=== PATIENT | male | born 1980 | race Caucasian/White ===

== ENCOUNTER 2023-02-19 11:05 | Outpatient (CLI) | payer BC, SELFPAY | END 2023-02-19 11:06 | disposition home or self-care (01) | LOC: NFLDREF 02-20 06:47 | PROVIDERS: PCP Family Medicine; Referring Provider Family Medicine; Visit Provider Family Medicine | DX: Z00.00 Encounter for general adult medical examination without abnormal findings (principal); E66.01 Morbid (severe) obesity due to excess calories; R53.83 Other fatigue; G47.30 Sleep apnea, unspecified; J45.909 Unspecified asthma, uncomplicated; R20.0 Anesthesia of skin; Z13.6 Encounter for screening for cardiovascular disorders | CPT/HCPCS: 80053; 80061; 84443 ==

== ENCOUNTER 2024-04-27 10:57 | Outpatient (CLI) | payer BC, SELFPAY ==
--- NOTE | 2024-04-27 11:00 | CRLHL7_ITS ---
For Patients: As a result of the Century Cures Act, medical imaging exams and procedure reports are released immediately into your electronic medical record. You may view this report before your referring provider. If you have questions, please contact your health care provider. INDICATION: right knee pain and swelling in calf COMPARISON: None. TECHNIQUE: A compression venous ultrasound exam was performed of the right lower extremity using obrien-scale imaging, color Doppler and spectral Doppler analysis. FINDINGS: Sonographic imaging of the right lower extremity demonstrates normal compressibility and color Doppler venous blood flow within the common femoral vein, deep femoral vein, and the proximal greater saphenous vein. Within the thigh, the femoral vein is patent and compressible. At a lower level, the popliteal and posterior tibial veins also show normal compressibility and color Doppler venous blood flow. Limited imaging of the contralateral groin demonstrates a normal spectral waveform and color Doppler venous blood flow within the left common femoral vein. IMPRESSION: Normal venous ultrasound exam. No evidence of deep vein thrombosis within the right lower extremity. Dictated by Marty Elias MD @ 04/27/2024 11:52:07 AM (Electronically Signed)
--- OUTSIDE RECORDS SUMMARY | 2024-04-27 11:00 | XMS_ITS | Referral Summary ---
Author Organization [place] Address [facility] [place] [address] Care Team Providers Care Medical Insurance Coding Specialist Name Role Phone [facility] Primary Care Provider Allergies No known active allergies Medications Medication Sig Dispensed Refills Start Date End Date Status cetirizine (ZYRTEC) 10 MG tablet Take 10 mg by mouth daily as needed for allergies Active acetaminophen (TYLENOL) 325 MG tabletIndications:C ellulitis of right lower extremity,Injury of right lower extremity, initial encounter Take 2 tablets (650 mg) by mouth every 4 hours as needed for mild pain 100 tablet 05/16/2018 Active furosemide (LASIX) 40 MG tabletIndications:H ypervolemia, unspecified hypervolemia type Take 1 tablet (40 mg) by mouth daily 90 tablet 3 06/11/2018 Active Additional Information Patient not taking.Reported on 10/12/2019 Active Problems Problem Noted Date Diagnosed Date Traumatic hematoma of lower leg with infection 0 05/15/2018 Abscess of right leg 05/15/2018 Morbid obesity 09/11/2014 SONAM (obstructive sleep apnea) Overview: on BiPAP Immunizations Name Administration Dates Next Due Influenza (IIV3) PF 06/18/2016 TDAP Vaccine (Adacel) 09/11/2014 Social History Tobacco Use Types Packs/Day Years Used Date Smoking Tobacco: Never Smokeless Tobacco: Never Alcohol Use Standard Drinks/Week Comments Yes 0 (1 standard drink = 0.6 oz pur e alcohol) weekly, but not every day PHQ-2 Answer Date Recorded PHQ-2 Score 0 09/05/2019 Adolescent Education Answer Date Record ed Getting School Help Needed Not on file 05/23 Sex and Gender Information Value Date Recorded Sex Assigned at Male 05/09/2021 8:23 PM CDT Gender Identity Male 05/09/2021 8:23 PM CDT Sexual Orientation Straight 05/09/2021 8: 23 PM CDT Last Filed Vital Signs Vital Sign Reading Time Taken Comments Blood Pressure 126/74 10/12/2019 5:49 PM HEAD OF PHYSICS Pulse 80 10/12/2019 5:49 PM [facility]YSICS Temperature 36.7 ??C (98.1 ??F) 10/12/2019 5:49 PM CS T Respiratory Rate 20 09/03/2019 10:39 PM [facility] Oxygen Saturation 97% 10/12/2019 5:49 PM [facility]ICS Inhaled Oxygen Concentration - - Weight 173.7 kg (383 lb) 10/12/2019 5:49 PM [facility]YSICS Height 193 cm (6' 4) 05/15/2018 6:07 AM CDT Body Mass Index 46.62 05/15/2018 6:07 AM CDT Plan of Treatment Not on file Procedures Procedure Name Priority Date/Time Associated Diagnosis Comments RENAL PANEL Routine 06/10/2018 11:02 AM CDT Acute kidney injury (H) LIPID REFLEX TO DIRECT LDL PANEL Routine 09/11/2014 8:51 AM HEAD OF PHYSICS Routine General Medical Examination At A Health Care Facility from Last 3 Months or Most Recently Relevant to Health Maintenance Results * (ABNORMAL) Renal panel (06/10/2018 11:02 AM CDT) Sodium 135 133 - 144 mmol/L 06/10/2018 11:39 AM CDT [facility] Potassium 4.0 3.4 - 5.3 mmol/L 06/10/2018 11:39 AM CDT [facility] Chloride 103 94 - 109 mmol/L 06/10/2018 11:39 AM CDT [facility] Carbon Dioxide 24 20 - 32 mmol/L 06/10/2018 11:39 AM CDT [facility] Anion Gap 9 3 - 14 mmol/L 06/10/2018 11:39 AM CDT [facility] Glucose 95 70 - 99 mg/dL 06/10/2018 11:39 AM CDT [facility] Urea Nitrogen 16 7 - 30 mg/dL 06/10/2018 11:39 AM CDT [facility] Creatinine 1.30(H) 0.66 - 1.25 mg/dL 06/10/2018 11:39 AM CDT [facility] GFR Estimate 62 >60 mL/min/1.7 m2 06/10/2018 11:39 AM CDT [facility] Comment:Non GFR Calc GFR Estimate If Black 75 >60 mL/min/1.7 m2 06/10/2018 11:39 AM CDT [facility] Comment: GFR Calc Calcium 8.9 8.5 - 10.1 mg/dL 06/10/2018 11:39 AM CDT [facility] Phosphorus 3.4 2.5 - 4.5 mg/dL 06/10/2018 11:39 AM CDT [facility] Albumin 3.6 3.4 - 5.0 g/dL 06/10/2018 11:39 AM CDT [facility] Blood specimen (specimen) 06/10/2018 11:02 AM CDT 06/10/2018 11:04 AM CDT [facility] - BLOOD ORDER KAYE [address] [phone] * (ABNORMAL) Lipid Profile with reflex to direct LDL (09/11/2014 8:51 AM HEAD OF PHYSICS) Cholesterol 213(H) <200 mg/dL [facility] Comment: LDL Cholesterol is the primary guide to therapy. The NCEP recommends further evaluation of: patients with cholesterol greater than 200 mg/dL if additional risk factors are present, cholesterol greater than 240 mg/dL, triglycerides greater than 150 mg/dL, or HDL less than 40 mg/dL. Triglycerides 130 0 - 150 mg/dL [facility] Comment:Fasting specimen HDL Cholesterol 40(L) >40 mg/dL [facility] LDL Cholesterol Calculated 147(H) 0 - 129 mg/dL [facility] Comment: LDL Cholesterol is the primary guide to therapy: LDL-cholesterol goal in high risk patients is <100 mg/dL and in very high risk patients is <70 mg/dL. VLDL-Cholesterol 26 0 - 30 mg/dL [facility] Cholesterol/HDL Ratio 5.3(H) 0.0 - 5.0 [facility] Blood specimen (specimen) 09/11/2014 8:51 AM [facility]ICS 09/11/2014 8:56 AM [facility] PHYSICS Truong Alfaro MD LAB - BLOOD ORDERA BLES Performing Organization Address City/State/[facility] Co de Phone Number [facility] [address] [place] [address] from Last 3 Months or Most Recently Relevant to Health Maintenance Advance Directives For more information, please contact: [phone] * Full Code (Latest Code Status on File) Date Activated Date Inactivated Comments 05/16/2018 2:28 PM 09/03/2019 10:33 PM Question Answer Comments Code status determined by: Discussion with patie nt/legal decision maker * Full Code Date Activated Date Inactivated Comments 05/15/2018 12:54 AM 05/16/2018 2:28 PM Question Answer Comments Code status determined by: Discussion with jarad nt/legal decision maker Care Teams Medical Insurance Coding Specialist Relationship Specialty Start Date End Date [facility] - [address] [address] PCP - General Internal Medicine 04/10/18
--- OUTSIDE RECORDS SUMMARY | 2024-04-27 11:00 | XMS_ITS | Clinical Summary ---
Author Organization [place] Address [facility] [place] [address] Care Team Providers Care Corporate Treasury Analyst Name Role Phone [facility] Primary Care Provider Allergies No known active [...] (IIV3) PF 06/18/2016 TDAP Vaccine (Adacel) 09/11/2014 Family History Medical History Relation Comments Diabetes Father Hypertension Father Multiple Sclerosis Mother Seizure Disorder Mother Cancer - colorectal No family hx of Colon Cancer No family hx of Prostate Cancer No family hx of Relation Status Comments Father Alive Mother Alive Sister 1 Alive Sister 2 Alive Social History Tobacco Use Types Packs/Day Years [...] Comments Blood Pressure 126/74 10/12/2019 5:49 PM ACCOUNT DEVELOPMENT REPRESENTATIVE Pulse 80 10/12/2019 5:49 PM ACCOUNT DEVELOPMENT REPRESENTATIVE Temperature 36.7 ??C (98.1 ??F) 10/12/2019 5:49 PM CS T Respiratory Rate 20 09/03/2019 10:39 PM ACCOUNT DEVELOPMENT REPRESENTATIVE Oxygen Saturation 97% 10/12/2019 5:49 PM ACCOUNT DEVELOPMENT REPRESENTATIVE Inhaled Oxygen Concentration - - Weight 173.7 kg (383 lb) 10/12/2019 5:49 PM ACCOUNT DEVELOPMENT REPRESENTATIVE Height 193 cm (6' 4) 05/15/2018 6:07 AM CDT Body Mass Index 46.62 05/15/2018 6:07 AM CDT Plan of Treatment Health Maintenance Due Date Last Done Comments ADVANCE CARE PLANNING 1982 ANNUAL REVIEW OF HM ORDERS 1982 HIV SCREENING 1997 HEPATITIS C SCREENING 2000 YEARLY PREVENTIVE VISIT 09/11/2015 09/11/2014 GLUCOSE 06/10/2021 06/10/2018, 05/17, 05/24/2018, Additional history exists LIPID 2022 09/11/2014 COVID-19 Vaccine ( season) 2023 01/24/2021 PHQ-2 (once per calendar year) 2023 09/05/2019, 05/24/2018 INFLUENZA VACCINE (#1) 2024 06/18/2016 DTAP/TDAP/TD IMMUNIZATION (3 - Td or Tdap) 09/11/2024 09/11/2014, 03/13/1999 HEPATITIS B IMMUNIZATION Completed 996, 04/24/1995, 03/27/1995 HPV IMMUNIZATION Aged Out No longer e ligible based on patient's age to complete this topic IPV IMMUNIZATION Aged Out No longer e ligible based on patient's age to complete this topic MENINGITIS IMMUNIZATION Aged Out No l onger eligible based on patient's age to complete this topic Pneumococcal Vaccine: Pediatrics (0 to 5 Years) and At-Risk Patients (6 to 64 Years) Aged Out No longer eligible based on patient's age to complete this topic RSV MONOCLONAL ANTIBODY Aged Out No l onger eligible based on patient's age to complete this topic Procedures Procedure Name Priority Date/Time Associated Diagnosis Comments RENAL PANEL Routine 06/10/2018 11:02 AM CDT Acute kidney injury (H) LIPID REFLEX TO DIRECT LDL PANEL Routine 09/11/2014 8:51 AM ACCOUNT DEVELOPMENT REPRESENTATIVE Routine General Medical Examination At A [facility] Facility from Last 3 Months or Most Recently Relevant to Health Maintenance Results * (ABNORMAL) Renal panel (06/10/2018 11:02 AM CDT) Sodium 135 133 - 144 mmol/L 06/10/2018 11:39 AM CDT [facility] Potassium 4.0 3.4 - 5.3 mmol/L 06/10/2018 11:39 AM CDT [facility] Chloride 103 94 - 109 mmol/L 06/10/2018 11:39 AM CDT [facility] Carbon Dioxide 24 20 - 32 mmol/L 06/10/2018 11:39 AM CDT [facility] Anion Gap 9 3 - 14 mmol/L 06/10/2018 11:39 AM CDT [facility] Glucose 95 70 - 99 mg/dL 06/10/2018 11:39 AM CDT [facility] Urea Nitrogen 16 7 - 30 mg/dL 06/10/2018 11:39 AM CDT [facility] Creatinine 1.30(H) 0.66 - 1.25 mg/dL 06/10/2018 11:39 AM CDT [facility] GFR Estimate 62 >60 mL/min/1.7 m2 06/10/2018 11:39 AM CDT [facility] Comment:Non GFR Calc GFR Estimate If Black 75 >60 mL/min/1.7 m2 06/10/2018 11:39 AM CDT [facility] Comment: GFR Calc Calcium 8.9 8.5 - 10.1 mg/dL 06/10/2018 11:39 AM CDT [facility] Phosphorus 3.4 2.5 - 4.5 mg/dL 06/10/2018 11:39 AM CDT [facility] Albumin 3.6 3.4 - 5.0 g/dL 06/10/2018 11:39 AM CDT [facility] Blood specimen (specimen) 06/10/2018 11:02 AM CDT 06/10/2018 11:04 AM CDT Nette Sheehan NP LAB - BLOOD ORDER KAYE [address] [phone] * (ABNORMAL) Lipid Profile with reflex to direct LDL (09/11/2014 8:51 AM ACCOUNT DEVELOPMENT REPRESENTATIVE) Cholesterol 213(H) <200 mg/dL [facility] Comment: LDL Cholesterol is the primary guide to therapy. The NCEP recommends further evaluation of: patients with cholesterol greater than 200 mg/dL if additional risk factors are present, cholesterol greater than 240 mg/dL, triglycerides greater than 150 mg/dL, or HDL less than 40 mg/dL. Triglycerides 130 0 - 150 mg/dL [facility] Comment:Fasting specimen HDL Cholesterol 40(L) >40 mg/dL [facility] LDL Cholesterol Calculated 147(H) 0 - 129 mg/dL [facility] Comment: LDL Cholesterol is the primary guide to therapy: LDL-cholesterol goal in high risk patients is <100 mg/dL and in very high risk patients is <70 mg/dL. VLDL-Cholesterol 26 0 - 30 mg/dL [facility] Cholesterol/HDL Ratio 5.3(H) 0.0 - 5.0 [facility] Blood specimen (specimen) 09/11/2014 8:51 AM ACCOUNT DEVELOPMENT REPRESENTATIVE 09/11/2014 8:56 AM ACCOUNT DEVELOPMENT REPRESENTATIVE Truong Alfaro MD LAB - BLOOD ORDERA BLES [facility] [address] [place] [address] from Last 3 Months or Most Recently Relevant to Health Maintenance Advance Directives For more information, please contact: [phone] * Full Code (Latest Code Status on File) Date Activated Date Inactivated Comments 05/16/2018 2:28 PM 09/03/2019 10:33 PM Question Answer Comments Code status determined by: Discussion with jarad nt/legal decision maker * Full Code Date Activated Date Inactivated Comments 05/15/2018 12:54 AM 05/16/2018 2:28 PM Question Answer Comments Code status determined by: Discussion with jarad nt/legal decision maker Care Teams Corporate Treasury Analyst Relationship Specialty Start Date End Date Clinic - [facility] [address] [address] PCP - General Internal Medicine 04/10/18
== END 2024-04-27 10:58 | disposition home or self-care (01) ==
PROVIDERS: PCP Internal Medicine; Visit Provider Internal Medicine
DX: M25.561 Pain in right knee (principal); M79.604 Pain in right leg
CPT/HCPCS: 93971